=== PATIENT | male | born 1955 | race Hispanic/Latino ===

== ENCOUNTER 2020-05-27 05:00 | Inpatient (IN) | payer MEDICARE ==
[~2020-05-27] VITALS: Ht 170.2 cm; Wt 107.2 kg
[2020-05-27] MEDS ORDERED: ZOSYN 3.375GM+NS 50ML 50 ML IV ONE ×2 (05:31→05:38)
[2020-05-27 05:46] LABS: HEMATOCRIT 38.9 % (42-54); MEAN CORPUSCULAR HEMOGLOBIN 28.4 pg (27.0-33.0); MEAN CORPUSCULAR HGB CONC 33.7 g/dL (32.0-36.0); MEAN CORPUSCULAR VOLUME 84.4 fL (79-99); MONOCYTES % (AUTO) 4.1 % (3.0-13.0); NEUTROPHILS % (AUTO) 90.3 % (40.0-77.0); PLATELET COUNT (AUTO) 238 K/uL (130-400); RED BLOOD CELL COUNT(AUTO) 4.61 MIL/uL (4.50-6.20); RED CELL DISTRIBUTION WIDTH 13.9 % (11.0-15.5); WHITE BLOOD COUNT (AUTO) 8.8 K/uL (4.8-10.8)
[2020-05-27 05:55] LABS: INR 1.02 (0.85-1.15); PARTIAL THROMBOPLASTIN TIME 34.1 SEC (26.3-35.5)
[2020-05-27 05:57] LABS: CARBON DIOXIDE 23 mmol/L (21-32); CHLORIDE 102 mmol/L (101-111); CREATININE 0.9 mg/dL (0.5-1.5); GLOMERULAR FILTR. RATE CALC 90 mL/min (>60); GLUCOSE,RANDOM 131 mg/dL (70-105); POTASSIUM 4.3 mmol/L (3.5-5.1); SODIUM SERUM 137 mmol/L (136-145); UREA NITROGEN, BLOOD 14 mg/dL (7-18)
[2020-05-27 06:11] LABS: ALANINE AMINOTRANSFERASE 45 U/L (12-78); ALBUMIN 2.8 g/dL (3.5-5.0); ASPARTATE AMINOTRANSFERASE 49 U/L (10-37); BILIRUBIN,TOTAL 0.6 mg/dL (0.2-1.0); CREATINE KINASE, TOTAL 93 U/L (21-232); MYOGLOBIN 55 ng/mL (10-92); TOTAL PROTEIN, SERUM 7.7 g/dL (6.0-8.3); TROPONIN I < 0.04 ng/mL (0.00-0.06)
[2020-05-27 07:08] LABS: APPEARANCE,URINE Clear (CLEAR); BILIRUBIN,URINE Negative (NEGATIVE); COLOR,URINE Yellow (YELLOW); GLUCOSE, URINE (UA) Negative (NEGATIVE); KETONES,URINE Negative (NEGATIVE); LEUKOCYTE ESTERASE ,URINE Negative (NEGATIVE); NITRATE,URINE Negative (NEGATIVE); OCCULT BLOOD,URINE Negative (NEGATIVE); PH,URINE 6.5 (5.0-8.0); PROTEIN,URINE POS 2+ mg/dL (NEGATIVE)
[2020-05-27 07:46] LABS: ABG BASE EXCESS -2.8 mmol/L (-2.0-3.0); ABG HCO3 20.6 mmol/L (21.0-28.0); ABG OXYGEN SATURATION 94.1 % (95.0-99.0); ABG PCO2 32 mmHg (35-48)
[2020-05-27] MEDS ORDERED: IOHEXOL-350 75 ML VIAL IV ONE (07:46)
[2020-05-27] MEDS ORDERED: IOHEXOL-350 50ML VIAL IV ONE (08:46)
[2020-05-27] MEDS ORDERED: AZITHROMYCIN 500MG+NS 250ML 250 ML IV ONE (09:10)
[2020-05-27] MEDS ORDERED: CEFTRIAXONE SODIUM 1 GM ONE ×3 (09:10→23:18)
[2020-05-27] MEDS ORDERED: ACETAMINOPHEN EXTRA STRENGTH 500 MG TABLET ONE (09:11)
[2020-05-27] MEDS ORDERED: ALBUTEROL INHALER 90MCG/INH IH PRN (17:15)
[2020-05-27] MEDS ORDERED: CEFTRIAXONE SODIUM 1 GM IVP SCH (19:00)
[2020-05-27] MEDS ORDERED: ENOXAPARIN SODIUM 40 MG/0.4 ML SYRINGE SQ SCH (20:00)
[2020-05-27] MEDS ORDERED: DOXYCYCLINE HYCLATE 100 MG TABLET PO SCH (21:00)
[2020-05-27] MEDS ORDERED: METHYLPREDNISOLONE SOD SUCC 40MG/ML 1ML IVP SCH (21:00)
[2020-05-27] MEDS ORDERED: ENOXAPARIN SODIUM 40 MG/0.4 ML SYRINGE SQ ONE ×2 (21:29→23:18)
[2020-05-27] MEDS ORDERED: FAMOTIDINE 20MG TAB 20 MG TAB ONE (21:29)
[2020-05-27] MEDS ORDERED: DOXYCYCLINE HYCLATE 100 MG TABLET PO ONE ×2 (21:29→23:17)
[2020-05-27 23:10] LABS: CRP QUANTITATIVE 206.5 mg/L (0.00-9.0)
[2020-05-27] MEDS ORDERED: METHYLPREDNISOLONE SOD SUCC 40MG/ML 1ML ONE (23:18)
[2020-05-28] MEDS ORDERED: HYDRALAZINE HCL 20 MG/ML VIAL ONE (05:24)
[2020-05-28 05:56] LABS: CRP QUANTITATIVE 207.5 mg/L (0.00-9.0)
[2020-05-28] MEDS ORDERED: ENOXAPARIN SODIUM 60 MG/0.6 ML SQ SCH (07:00)
[2020-05-28] MEDS: ASCORBIC ACID 500 MG TAB PO SCH (09:00)
[2020-05-28] MEDS ORDERED: ZINC SULFATE 220 CAPSULE PO SCH (09:00)
[2020-05-28] MEDS ORDERED: CEFTRIAXONE SODIUM 1 GM ONE ×2 (10:44→21:03)
[2020-05-28] MEDS ORDERED: ENOXAPARIN SODIUM 60 MG/0.6 ML SQ ONE ×2 (10:45→21:02)
[2020-05-28] MEDS ORDERED: ZINC SULFATE 220 CAPSULE ONE (10:46)
[2020-05-28] MEDS ORDERED: METHYLPREDNISOLONE SOD SUCC 40MG/ML 1ML ONE (10:46)
[2020-05-28] MEDS ORDERED: ASCORBIC ACID 500 MG TAB ONE (10:46)
[2020-05-28] MEDS ORDERED: DOXYCYCLINE HYCLATE 100 MG TABLET PO ONE ×2 (10:46→21:02)
[2020-05-28 11:31] LABS: HEMOGLOBIN A1C 7.7 % (4.0-6.0)
[2020-05-28] MEDS ORDERED: FUROSEMIDE 10 MG/ML 2ML VIAL IV SCH (14:40)
[2020-05-28] MEDS ORDERED: FUROSEMIDE 10 MG/ML 2ML VIAL ONE (15:43)
--- NOTE | 2020-05-28 18:25 | NUR ---
INITIAL SW spoke with patient's spouse, Neeta Dennis, [phone]. He has no home services. DME: glucometer (no insulin), BPM, cane. Patient needs help with ADL's as per but is able to drive. PCP is MD at [facility]. Pharmacy is [facility] located in [place]. DCP is home. Addendum: 05/28/20 at 1826 by JAMES CONDE SS Amended: Links added.
[2020-05-28] MEDS ORDERED: ACETAMINOPHEN EXTRA STRENGTH 500 MG TABLET ONE (18:43)
[2020-05-28] MEDS ORDERED: METHYLPREDNISOLONE SOD SUCC 125MG/2ML VIAL ONE (21:02)
[2020-05-29 07:07] LABS: BASOPHILS % (AUTO) 0.1 % (0.0-5.0); HEMATOCRIT 36.1 % (42-54); LYMPHOCYTES % (AUTO) 4.3 % (21.0-51.0); MEAN CORPUSCULAR HEMOGLOBIN 28.7 pg (27.0-33.0); MEAN CORPUSCULAR HGB CONC 33.8 g/dL (32.0-36.0); MEAN CORPUSCULAR VOLUME 84.9 fL (79-99); NEUTROPHILS % (AUTO) 89.2 % (40.0-77.0); PLATELET COUNT (AUTO) 220 K/uL (130-400); RED BLOOD CELL COUNT(AUTO) 4.25 MIL/uL (4.50-6.20); RED CELL DISTRIBUTION WIDTH 13.4 % (11.0-15.5); WHITE BLOOD COUNT (AUTO) 10.8 K/uL (4.8-10.8)
[2020-05-29 07:34] LABS: ALBUMIN 2.6 g/dL (3.5-5.0); BILIRUBIN,TOTAL 0.4 mg/dL (0.2-1.0); CREATININE 0.9 mg/dL (0.5-1.5); CRP QUANTITATIVE 91.9 mg/L (0.00-9.0); TOTAL PROTEIN, SERUM 7.5 g/dL (6.0-8.3)
[2020-05-29] MEDS: ASCORBIC ACID 500 MG TAB PO SCH (09:00)
[2020-05-29] MEDS ORDERED: METHYLPREDNISOLONE SOD SUCC 125MG/2ML VIAL ONE (10:24)
[2020-05-29] MEDS ORDERED: ENOXAPARIN SODIUM 60 MG/0.6 ML SQ ONE (10:24)
[2020-05-29] MEDS ORDERED: ZINC SULFATE 220 CAPSULE ONE (10:24)
[2020-05-29] MEDS ORDERED: CEFTRIAXONE SODIUM 1 GM ONE (11:43)
[2020-05-29] MEDS ORDERED: DOXYCYCLINE HYCLATE 100 MG TABLET PO ONE (11:43)
[2020-05-29] MEDS ORDERED: ASCORBIC ACID 500 MG TAB ONE (11:43)
[2020-05-29] MEDS: ZINC SULFATE 220 CAPSULE PO SCH (12:00)
[2020-05-29] MEDS: ZOSYN 3.375GM+NS 50ML 50 ML IV SCH ×2 (13:30→21:30)
[2020-05-29] MEDS: AZITHROMYCIN 500MG+NS 250ML 250 ML IV SCH (13:30)
[2020-05-29] MEDS ORDERED: ZOSYN 3.375GM+NS 50ML 50 ML IV ONE (15:23)
[2020-05-29] MEDS ORDERED: AZITHROMYCIN 500MG+NS 250ML 250 ML IV ONE (15:23)
[2020-05-29] MEDS ORDERED: DEXAMETHASONE 4 MG TAB ONE (20:32)
[2020-05-29] MEDS: DEXAMETHASONE 4 MG TAB PO SCH (21:00)
[2020-05-29 22:22] VITALS: BP 149/81
--- NOTE | 2020-05-29 23:00 | NUR ---
patient came to the floor pt denies sob , denies chest pain patient sating 92 % on room air will attempt to wean patient, o2 decreased to 1 liter patient stable will conitnue to monitor call light w teach back teaching successfully
[2020-05-30] MEDS ORDERED: METF-444 PO
[2020-05-30] MEDS ORDERED: LISI2.5T2 PO (00:31)
[2020-05-30] MEDS ORDERED: METH500T6 PO (00:31)
[2020-05-30] MEDS ORDERED: MONT10TA26 PO (00:31)
[2020-05-30] MEDS ORDERED: PRAV10TA39 PO (00:31)
[2020-05-30] MEDS ORDERED: IBUP-2071 PO (00:31)
[2020-05-30] MEDS ORDERED: FLUC10SU2 PO (00:31)
[2020-05-30 04:14] VITALS: BP 118/66
[2020-05-30] MEDS: ZOSYN 3.375GM+NS 50ML 50 ML IV SCH ×2 (05:06→14:01)
[2020-05-30 05:13] LABS: BASOPHILS % (AUTO) 0.1 % (0.0-5.0); HEMATOCRIT 35.3 % (42-54); LYMPHOCYTES % (AUTO) 3.4 % (21.0-51.0); MEAN CORPUSCULAR HEMOGLOBIN 28.9 pg (27.0-33.0); MEAN CORPUSCULAR VOLUME 85.1 fL (79-99); MONOCYTES % (AUTO) 5.5 % (3.0-13.0); NEUTROPHILS % (AUTO) 90.4 % (40.0-77.0); PLATELET COUNT (AUTO) 375 K/uL (130-400); RED BLOOD CELL COUNT(AUTO) 4.15 MIL/uL (4.50-6.20); RED CELL DISTRIBUTION WIDTH 13.3 % (11.0-15.5); WHITE BLOOD COUNT (AUTO) 14.3 K/uL (4.8-10.8)
[2020-05-30 05:36] LABS: ALBUMIN 2.5 g/dL (3.5-5.0); BILIRUBIN,TOTAL 0.5 mg/dL (0.2-1.0); CRP QUANTITATIVE 45.4 mg/L (0.00-9.0); POTASSIUM 3.9 mmol/L (3.5-5.1); TOTAL PROTEIN, SERUM 7.1 g/dL (6.0-8.3)
[2020-05-30 08:00] VITALS: BP 116/53
[2020-05-30] MEDS ORDERED: ENOXAPARIN SODIUM 40 MG/0.4 ML SYRINGE SQ SCH (09:00)
[2020-05-30] MEDS: DEXAMETHASONE 4 MG TAB PO SCH (09:41)
[2020-05-30] MEDS: ASCORBIC ACID 500 MG TAB PO SCH (09:41)
[2020-05-30] MEDS: AZITHROMYCIN 500MG+NS 250ML 250 ML IV SCH (12:59)
[2020-05-30] MEDS: ZINC SULFATE 220 CAPSULE PO SCH (12:59)
[2020-05-30 13:33] VITALS: BP 127/63
[2020-05-30] MEDS ORDERED: CEPH-578 PO (13:45)
[2020-05-30] MEDS ORDERED: APIX2.5T PO (13:45)
[2020-05-30] MEDS ORDERED: DOXY100C2 PO (13:45)
[2020-05-30] MEDS ORDERED: DEXA6TAB PO (13:45)
[2020-05-30 16:00] VITALS: BP 140/77
--- NOTE | 2020-05-30 18:56 | NUR ---
AAOX4, PREDOMINANTLY TURKISH SPEAKING, BUT DOES UNDERSTAND AND SPEAKS SOME TAMAZIGHT. COVID+, ISOLATION PRECAUTIONS MAINTAINED. RESPIRATIONS EVEN AND UNLABORED ON ROOM AIR. DR. HWANG ROUNDED WITH ORDER TO DISCHARGE HOME. COVID DISCHARGE TEACHING PER DR. HWANG WITH UNDERSTANDING VERBALIZED. IV ACCESSES REMOVED WITH CATHETERS INTACT. TRANSPORTED VIA WHEELCHAIR TO PRIVATE VEHICLE FOR DISCHARGE HOME. ACCOMPANIED BY SON.
[2020-05-31 08:00] VITALS: BP 132/64
== END 2020-05-30 19:05 | disposition home or self-care (01) | DRG 177 ==
LOC: EDH 05:00 → EDHIP 11:42 → 4BH 05-29 21:23
PROVIDERS: ADMIT Internal Medicine; ATTEND Internal Medicine
DX: U07.1 COVID-19 (principal); J96.01 Acute respiratory failure with hypoxia; J12.89 Other viral pneumonia; I10 Essential (primary) hypertension; E11.9 Type 2 diabetes mellitus without complications; E66.01 Morbid (severe) obesity due to excess calories; K52.9 Noninfective gastroenteritis and colitis, unspecified; Z83.3 Family history of diabetes mellitus; Z68.37 Body mass index [BMI] 37.0-37.9, adult
CPT/HCPCS: 36415; 36600; 71045; 71275; 74177; 80053; 81003; 82270; 82550; 82728; 82803; 82948; 83036; 83605; 83615; 83874; 84145; 84484; 85025; 85378; 85610; 85730; 86140; 87040; 87088; 87486; 87581; 87633; 87798; 87804; 93005; G0378; J0360; J0456; J0696; J1650; J1940; J2543; J2920; J2930; J8540; Q9967; U0003